=== PATIENT | female | born 1990 | race Two or more races ===

== ENCOUNTER 2017-08-07 10:21 | Emergency (ER) | payer MEDICAID ==
[~2017-08-07] VITALS: Ht 154.9 cm; Wt 93.4 kg
[2017-08-07 10:27] VITALS: BP 133/66; Ht 154.9 cm; Wt 93.4 kg
== END 2017-08-07 11:18 | disposition home or self-care (01) ==
LOC: ED 10:21
DX: N93.9 Abnormal uterine and vaginal bleeding, unspecified (principal); I10 Essential (primary) hypertension

== ENCOUNTER 2017-10-09 18:22 | Emergency (ER) | payer MEDICAID ==
[~2017-10-09] VITALS: Ht 157.5 cm; Wt 92.1 kg
[2017-10-09 18:31] VITALS: Ht 157.5 cm; Wt 92.1 kg
[2017-10-09 22:31] LABS: microscopic required? NO
[2017-10-09 22:48] LABS: BASOPHIL % 0.2 % (0-2); PLATELET COUNT 343 x10^3mcL (130-400); RED CELL DISTRIBUTION WIDTH 14.4 % (11.5-14.5)
[2017-10-09 22:59] LABS: urine erythrocyte NEGATIVE (NEGATIVE)
[2017-10-09 23:01] LABS: CALCIUM 9.1 mg/dL (8.5-10.1); CARBON DIOXIDE 25.3 mmol/L (21-32); CHLORIDE SERUM 100 mmol/L (98-107); CREATININE SERUM 0.7 mg/dL (0.6-1.0); GFR1 > 60 mL/min; GLUCOSE SERUM 96 mg/dL (74-106); POTASSIUM SERUM 3.4 mmol/L (3.5-5.1); SODIUM SERUM 135 mmol/L (136-145)
[2017-10-09 23:04] LABS: ALBUMIN 3.6 g/dL (3.4-5.0); ALKALINE PHOSPHATASE 78 U/L (46-116); ALT/SGPT 37 U/L (14-59); AST/SGOT 14 U/L (15-37); BILIRUBIN TOTAL 0.3 mg/dL (0.20-1.00); LIPASE 75 IU/L (73-393)
[2017-10-10 00:16] VITALS: BP 106/52
== END 2017-10-10 00:16 | disposition home or self-care (01) ==
LOC: ED 18:22
PROVIDERS: Emergency Medicine
DX: O21.9 Vomiting of pregnancy, unspecified (principal); Z3A.01 Less than 8 weeks gestation of pregnancy
CPT/HCPCS: J2765; J7030; Q0092

== ENCOUNTER 2018-08-03 13:30 | Emergency (ER) | payer MEDICAID ==
[~2018-08-03] VITALS: Ht 152.4 cm; Wt 92.1 kg
[2018-08-03 14:00] VITALS: Ht 152.4 cm; Wt 92.1 kg
[2018-08-03 15:59] VITALS: BP 112/72
== END 2018-08-03 15:59 | disposition home or self-care (01) ==
LOC: ED 13:30
DX: T50.905A Adverse effect of unspecified drugs, medicaments and biological substances, initial encounter (principal); R10.9 Unspecified abdominal pain; Z90.49 Acquired absence of other specified parts of digestive tract; Z98.890 Other specified postprocedural states; Y92.89 Other specified places as the place of occurrence of the external cause